=== PATIENT | female | born 1980 | race Caucasian/White ===

== ENCOUNTER 2020-09-21 02:03 | Emergency (ER) | payer MEDICAID ==
[~2020-09-21] VITALS: Ht 160 cm; Wt 59.9 kg
--- NOTE | 2020-09-21 02:19 | NUR ---
ED Nurse Note: Patient walked in from home c/o foul smell from genitals of sexual partner. Patient denies any burning upon urination, vaginal discharge or bleeding. Patient aao x 4 and ambulatory with steady gait. Patient stable upon assessment.
[2020-09-21 02:20] VITALS: BP 127/72
--- NOTE | 2020-09-21 02:26 | Emergency Room Report ---
History of Present Illness General Chief Complaint: Female Urogenital Problems Source: Patient Present Illness HPI Is a 40-year-old female with no past medical history. She presents with chief complaint of possible STD exposure. She has a partner that she has sexual intercourse with the last 3 years. They are not monogamous. They have unprotected sex. She claimed that she had STD testing about 4 and half weeks ago was negative. She said that tonight, his penis has a very foul odor and because of that she was concerned. She does not have any symptoms. She does not have any discharge or any smell. She wanted shots for STD. 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 Patient History Past Medical History: see triage record, old chart reviewed Past Surgical History: none Pertinent Family History: none Social History: Denies: smoking Last Menstrual Period: 09/16/20 Now: No : 0 Para: 0 Immunizations: other Reviewed Nursing Documentation: PMH: Agreed; PSxH: Agreed Nursing Documentation-PMH Past Medical History: No Stated History Review of Systems Eye: Denies: eye pain, blurred vision ENT: Denies: ear pain, nose congestion, throat swelling Respiratory: Denies: cough, shortness of breath Cardiovascular: Denies: chest pain, palpitations Gastrointestinal: Denies: abdominal pain, diarrhea, nausea, vomiting Musculoskeletal: Denies: back pain, joint pain Skin: Denies: rash Neurological: Denies: headache, numbness Endocrine: Denies: increased thirst, increased urine Hematologic/Lymphatic: Denies: easy bruising All Other Systems: negative except mentioned in HPI Physical Exam Vital Signs Date Time Temp Pulse Resp B/P (MAP) Pulse Ox O2 Delivery O2 Flow Rate FiO2 09/21/20 02:10 97.5 94 20 127/72 (90) 96 Room Air Vitals normal Sp02 EP Interpretation: reviewed, normal General Appearance: well appearing, no apparent distress, alert Head: normocephalic, atraumatic Eyes: bilateral eye PERRL, bilateral eye EOMI ENT: hearing grossly normal, normal pharynx Neck: full range of motion, supple, no meningismus Respiratory: chest non-tender, lungs clear, normal breath sounds Cardiovascular #1: regular rate, rhythm, no murmur Gastrointestinal: normal bowel sounds, non tender, no mass, no organomegaly, no bruit, non-distended Musculoskeletal: back normal, normal range of motion, gait/station normal Psychiatric: anxious Medical Decision Making Diagnostic Impression: Primary Impression: Possible exposure to STD ER Course This patient presents with possible exposure to STD. She has no symptoms but requests treatment. Recommend outpatient testing for HIV, hepatitis, syphilis and other STDs. We will give her Rocephin azithromycin here and discharged home. Last Vital Signs Date Time Temp Pulse Resp B/P (MAP) Pulse Ox O2 Delivery O2 Flow Rate FiO2 09/21/20 02:20 97.5 97 20 127/72 96 Room Air Status: improved Disposition: HOME, SELF-CARE Condition: Stable Referrals: NOT CHOSEN [facility]/,REFERRING (PCP) Additional Instructions: Recommend outpatient testing for HIV, hepatitis, syphilis and other STDs. Follow-up with your doctor in 7 days as needed. Return if symptoms worsen. Felice Andrade MD Sep 21, 2020 02:26
[2020-09-21] MEDS ORDERED: Azithromycin 250mg tab ORAL ONE (02:30)
[2020-09-21] MEDS ORDERED: Lidocaine 1% MPF 10mg/ml 5ml INJ ONE (02:30)
[2020-09-21 02:36] VITALS: BP 129/75
--- NOTE | 2020-09-21 02:36 | NUR ---
ER DISCHARGE NOTE: Patient is cleared to be discharged per ERMD, pt is aox4, on room air, with stable vital signs. pt was given dc instructions, pt was able to verbalize understanding, pt id band removed. pt is able to ambulate with steady gait. pt took all belongings. pt stable upon discharge.
== END 2020-09-21 02:36 | disposition home or self-care (01) ==
LOC: EMR 02:14
DX: Z20.2 Contact with and (suspected) exposure to infections with a predominantly sexual mode of transmission (principal)
CPT/HCPCS: 96372; J0696; Q0144; Z7502; 99283

== ENCOUNTER 2020-11-12 23:46 | Emergency (ER) | payer MEDICAID ==
[~2020-11-12] VITALS: Ht 160 cm; Wt 63.5 kg
--- NOTE | 2020-11-12 23:50 | NUR ---
ED Nurse Note: Pt walked into the ED with c/o redness and pain on chin area. Pt stated she had cellulitis on that area and popped the abscess 1/3. Pt stated green puss from site. Pt denies fever/chills, N/V. Pt aaox4 and ambulatory. ERMD seen pt
[2020-11-13 00:05] VITALS: BP 129/81
--- NOTE | 2020-11-13 00:05 | NUR ---
ED Nurse Note: Pus drainage done by ERMD at bedside
[2020-11-13] MEDS ORDERED: BACTRIM DS TAB1 EAC1 ORAL (00:10)
--- NOTE | 2020-11-13 00:10 | Emergency Room Report ---
History of Present Illness General Chief Complaint: Skin Rash/Abscess Source: Patient Present Illness HPI Is a 40-year-old female with no past medical history. She presents with chief complaint of infection to her chin. Onset for last couple days. She says she squeezed out some green pus. Now her lymph no swollen. Tender to that area. No trauma. Pain is 7 out of 10. Worse with palpation. Better with leaving it alone. Denies any fever chills. 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 Patient History Past Medical History: see triage record, old chart reviewed Past Surgical History: none Pertinent Family History: none Social History: Denies: smoking Last Menstrual Period: 11/2019 Now: No Immunizations: other Reviewed Nursing Documentation: PMH: Agreed; PSxH: Agreed Nursing Documentation-PMH Past Medical History: No Stated History Review of Systems Eye: Denies: eye pain, blurred vision ENT: Denies: ear pain, nose congestion, throat swelling Respiratory: Denies: cough, shortness of breath Cardiovascular: Denies: chest pain, palpitations Gastrointestinal: Denies: abdominal pain, diarrhea, nausea, vomiting Musculoskeletal: Denies: back pain, joint pain Skin: Denies: rash Neurological: Denies: headache, numbness Endocrine: Denies: increased thirst, increased urine Hematologic/Lymphatic: Denies: easy bruising All Other Systems: negative except mentioned in HPI Physical Exam Vital Signs Date Time Temp Pulse Resp B/P (MAP) Pulse Ox O2 Delivery O2 Flow Rate FiO2 11/12/20 23:48 98.4 98 16 129/81 (97) 97 Room Air Vitals normal Sp02 EP Interpretation: reviewed, normal General Appearance: well appearing, no apparent distress, alert Head: normocephalic, atraumatic Eyes: bilateral eye PERRL, bilateral eye EOMI ENT: hearing grossly normal, normal pharynx, other - She has some scabbing and indurated area of 1 and half centimeter to her chin. No fluctuant. No redness. Neck: full range of motion, supple, no meningismus Respiratory: chest non-tender, lungs clear, normal breath sounds Cardiovascular #1: regular rate, rhythm, no murmur Gastrointestinal: normal bowel sounds, non tender, no mass, no organomegaly, no bruit, non-distended Musculoskeletal: back normal, normal range of motion, gait/station normal Psychiatric: mood/affect normal Procedures Incision and Drainage Incision and Drainage : Consent: Verbal Site: Chin Blade Size: 11 I & D Procedure: betadine prep Wound Location: face Anesthesia: 1% Lidocaine Volume Anesthetic (ccs): 1 Patient Tolerated: Well Complications: None Progress Area cleaned with Betadine. Local anesthetic 1% lidocaine. I made a small incision with 11 blade scalpel. There was small amount of pus expressed. Wound explored. Patient tolerated procedure without any problem. Medical Decision Making Diagnostic Impression: Primary Impression: Abscess of chin ER Course Patient presents with small abscess to her chin. No deep infection. No ne crotizing fasciitis. Last Vital Signs Date Time Temp Pulse Resp B/P (MAP) Pulse Ox O2 Delivery O2 Flow Rate FiO2 11/13/20 00:05 98.4 16 129/81 97 Room Air 11/12/20 23:48 98 Status: improved Disposition: HOME, SELF-CARE Condition: Stable Scripts Trimethoprim/Sulfamethoxazole 160/800* (BACTRIM DS TABLET*) 1 Each Tablet 1 TAB ORAL Q12H, #14 TAB 0 Refills Prov: Felice Andrade MD 11/13/20 Referrals: [facility],REFERRING (PCP) Patient Instructions: Abscess Additional Instructions: Keep wound clean. Clean with hydrogen peroxide and apply antibiotic ointment. Follow-up with your doctor in 7 days for recheck. Return if worse. Felice Andrade MD Nov 13, 2020 00:10
[2020-11-13] MEDS ORDERED: Bactrim-DS 1 tab ORAL ONE (00:15)
[2020-11-13 00:21] VITALS: BP 129/81
--- NOTE | 2020-11-13 00:21 | NUR ---
ER DISCHARGE NOTE: Patient is cleared to be discharged per ERMD, pt is aox4, on room air, with stable vital signs. pt was given dc and prescription instructions, pt was able to verbalize understanding, pt id band removed. pt is able to ambulate with steady gait. pt took all belongings.
== END 2020-11-13 00:22 | disposition home or self-care (01) ==
LOC: EMR 23:55
DX: L02.01 Cutaneous abscess of face (principal)
CPT/HCPCS: 10060; Z7502; 99282

== ENCOUNTER 2020-12-21 17:56 | Emergency (ER) | payer MEDICAID ==
[~2020-12-21] VITALS: Ht 160 cm; Wt 61.7 kg
[~2020-12-21 17:56] MED LIST: BACTRIM DS TAB1 EAC1 ORAL
[2020-12-21 18:31] VITALS: BP 127/91
[2020-12-21] MEDS ORDERED: Azithromycin 250mg tab ORAL ONE (18:45)
[2020-12-21] MEDS ORDERED: Lidocaine 1% MPF 10mg/ml 5ml INJ ONE (18:45)
--- NOTE | 2020-12-21 19:36 | NUR ---
ED Nurse Note: Received report from DHAVAL Rios. Urine collected.
--- NOTE | 2020-12-21 19:45 | NUR ---
ED Nurse Note: Recieved report to resume care, pt in room sitting on bed, awake and oriented x 4, pt here for STD check, waiting to recieve urine sample, pt given water to drink, pt was medicated prior, will monitor for med reaction and increased distress.
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
[2020-12-21] MEDS ORDERED: GYNE-LOTRIMIN45 GM VG (19:48)
[2020-12-21 20:03] LABS: APPEARANCE,URINE CLOUDY; BILIRUBIN, URINE NEGATIVE (NEGATIVE); GLUCOSE, URINE (UA) NEGATIVE (NEGATIVE); KETONES,URINE NEGATIVE (NEGATIVE); LEUKOCYTE ESTERASE ,URINE 3+ (NEGATIVE); NITRITE,URINE NEGATIVE (NEGATIVE); PH,URINE 6.5 (4.5-8.0); PROTEIN,URINE 1+ (NEGATIVE); UROBILINOGEN,URINE 4 MG/DL (0.0-1.0)
[2020-12-21 20:25] LABS: COLOR,URINE YELLOW
[2020-12-21] MEDS ORDERED: NITROFURANTOIN100 M2 ORAL (20:45)
--- NOTE | 2020-12-21 21:00 | NUR ---
ED Nurse Note: Pt urine sample collected and sent to lab, pt c/o feeling nausea, MD inhformed and pt medicated, waited about 20 min then gave trial, pt ate sandwich, chips and drank juice, tolerated all well, pt continues to wait for results and disposition.
[2020-12-21 21:05] VITALS: BP 129/74
[2020-12-21 21:40] VITALS: BP 129/74
--- NOTE | 2020-12-21 21:40 | NUR ---
ER DISCHARGE NOTE: Patient is cleared to be discharged per ERMD, pt is aox4, on room air, with stable vital signs. pt was given dc and prescription instructions, pt was able to verbalize understanding, pt id band removed without complications. pt is able to ambulate with steady gait. pt took all belongings.pt with spouse.
== END 2020-12-21 21:40 | disposition home or self-care (01) ==
LOC: EMR 19:20
DX: Z20.2 Contact with and (suspected) exposure to infections with a predominantly sexual mode of transmission (principal); N30.00 Acute cystitis without hematuria; F17.200 Nicotine dependence, unspecified, uncomplicated; F19.90 Other psychoactive substance use, unspecified, uncomplicated; F10.10 Alcohol abuse, uncomplicated
CPT/HCPCS: 81003; 81025; 87086; 87181; 87491; 87529; 87590; 96372; J0696; Q0144; Z7502; 99284